=== PATIENT | male | born 1985 ===

== ENCOUNTER 2021-06-09 17:16 | Emergency (ER) | payer SELFPAY ==
[2021-06-09 17:21] VITALS: BP 110/86
== END 2021-06-09 19:16 | disposition left against medical advice (07) ==
LOC: ED 17:16
DX: R11.2 Nausea with vomiting, unspecified (principal); R19.7 Diarrhea, unspecified; Z53.21 Procedure and treatment not carried out due to patient leaving prior to being seen by health care provider